=== PATIENT | female | born 1985 | race Asian ===

== ENCOUNTER 2016-12-31 20:50 | Emergency (ER) | payer MEDICAID, OTHER ==
[2016-12-31 21:12] VITALS: BP 120/80
--- NOTE | 2016-12-31 21:19 | ED Physician Documentation ---
PD HPI FEMALE - Stated complaint Stated Complaint: FEMALE - Chief complaint Chief Complaint: UTI - History obtained from History obtained from: Patient - History of Present Illness Timing - onset: Other (1 day of burning dysuria, frequency, and hematuria without flank pain, fevers. She did have a brief episode of nausea yesterday. She does not have frequent) Review of Systems Constitutional: denies: Fever, Chills GI: denies: Abdominal Pain, Vomiting, Diarrhea : reports: Dysuria, Frequency, Hesitancy, Hematuria PD PAST MEDICAL HISTORY - Past Medical History Past Medical History: No - Past Surgical History Past Surgical History: No - Present Medications Home Medications: Ambulatory Orders Medication Instructions Recorded Confirmed Nitrofurantoin Monohyd/M-Cryst 1 tab PO BID 5 Days capsule 12/31/16 [Macrobid 100 mg Capsule] Phenazopyridine HCl [Pyridium] 200 mg PO TID #6 tablet 12/31/16 - Allergies Allergies/Adverse Reactions: Allergies Allergy/AdvReac Type Severity Reaction Status Date / Time latex Allergy Rash Verified 12/31/16 21:04 - Social History Does the pt smoke?: No Smoking Status: Never smoker Does the pt drink ETOH?: No Does the pt have substance abuse?: No - Immunizations Immunizations are current?: No Immunizations: TDAP >10years/unknown PD ED PE NORMAL - Vitals Vital signs reviewed: Yes - General General: Alert and oriented X 3, No acute distress - Abdomen Abdomen: Normal bowel sounds, Soft, Non tender - Back Back: No CVA TTP, No spinal TTP - Neuro Neuro: Alert and oriented X 3, No motor deficit, Normal speech - Psych Psych: Normal mood, Normal affect Results - Vitals Vitals: Vital Signs - 24 hr 12/31/16 21:02 Temperature 36 C L Heart Rate 88 Respiratory 18 Rate Blood Pressure 120/80 O2 Saturation 100 Oxygen O2 Source Room air - Labs Labs: Laboratory Tests 12/31/16 21:05 Urine Color BROWN Urine Clarity BLOODY Urine pH 6.0 Ur Specific [place] 1.025 Urine Protein 100 H Urine Glucose (UA) NEGATIVE Urine Ketones NEGATIVE Urine Occult Blood LARGE H Urine Nitrite NEGATIVE Urine Bilirubin NEGATIVE Urine Urobilinogen 0.2 (NORMAL) Ur Leukocyte Esterase TRACE H Urine RBC 11-25 H Urine WBC 11-25 H Ur Squamous Epith Cells NONE SEEN Urine Bacteria None Seen Ur Microscopic Review INDICATED Urine Culture Comments INDICATED Departure - Departure Disposition: Home, Self Care Clinical Impression: Cystitis Condition: Good Record reviewed to determine appropriate education?: Yes Instructions: ED UTI Cystitis Female Prescriptions: Nitrofurantoin Monohyd/M-Cryst [Macrobid 100 mg Capsule] 1 tab PO BID 5 Days capsule Phenazopyridine HCl [Pyridium] 200 mg PO TID #6 tablet Comments: We will culture your urine, the results should be done in 48-72 hours. If an antibiotic change is necessary we will call you. Return if worse in the meantime, especially if you develop increasing flank pain, fevers, or cannot keep down the medication. Discharge Date/Time: 12/31/16 21:39
[2016-12-31 21:22] LABS: BILIRUBIN,URINE NEGATIVE (NEGATIVE)
[2016-12-31 21:24] LABS: UA w/ MICROSCOPIC CHARGE YES
[2016-12-31 21:25] LABS: UR CULTURE IF IND INDICATED
[2016-12-31] MEDS ORDERED: NITROFURANTOIN MACRO 100 MG CAPSULE PO STA (21:28)
[2016-12-31] MEDS ORDERED: PHENAZOPYRIDINE 100 MG TABLET PO STA (21:29)
[2016-12-31] MEDS ORDERED: NITROFURANTOIN MACRO 100 MG CAPSULE PO ONE (21:38)
[2016-12-31] MEDS ORDERED: PHENAZOPYRIDINE 100 MG TABLET PO ONE ×2 (21:38→21:41)
== END 2016-12-31 21:39 | disposition home or self-care (01) ==
LOC: ED 20:50
DX: N30.90 Cystitis, unspecified without hematuria (principal)
CPT/HCPCS: 81001; 87086; 87181; 99283; A9270; 81003

== ENCOUNTER 2017-01-17 12:20 | Emergency (ER) | payer MEDICAID ==
[2017-01-17 12:25] VITALS: BP 118/77
[2017-01-17 12:41] LABS: BILIRUBIN,URINE NEGATIVE (NEGATIVE)
[2017-01-17 12:43] LABS: HCG UR QUAL NEGATIVE; UA w/ MICROSCOPIC CHARGE YES
[2017-01-17 13:06] LABS: UR CULTURE IF IND INDICATED; WBC,URINE >25 /HPF (0-5)
--- NOTE | 2017-01-17 13:17 | ED Physician Documentation ---
History of Present Illness - Stated complaint Stated Complaint: FEMALE - Chief complaint Chief Complaint: General - Additonal information Additional information: hx from pt dysuria and freq no fever no flank pain no abd pain no NVD no vag bleed or dc denies preg Review of Systems Constitutional: denies: Fever GI: denies: Abdominal Pain, Vomiting : reports: Dysuria, Frequency. 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 - Present Medications Home Medications: Ambulatory Orders Medication Instructions Recorded Confirmed Cephalexin [Keflex] 500 mg PO Q6H #28 capsule 01/17/17 - Allergies Allergies/Adverse Reactions: Allergies Allergy/AdvReac Type Severity Reaction Status Date / Time latex Allergy Rash Verified 01/17/17 12:25 - Social History Does the pt smoke?: No Smoking Status: Never smoker Does the pt drink ETOH?: No Does the pt have substance abuse?: No - Immunizations Immunizations are current?: No Immunizations: TDAP >10years/unknown - POLST Patient has POLST: No PD ED PE NORMAL - Vitals Vital signs reviewed: Yes - General General: Alert and oriented X 3 - HEENT HEENT: PERRL - Neck Neck: Supple, no meningeal sign - Cardiac Cardiac: RRR - Respiratory Respiratory: No respiratory distress, Clear bilaterally - Abdomen Abdomen: Soft, Non tender - Back Back: No CVA TTP - Neuro Neuro: Alert and oriented X 3 Results - Vitals Vitals: Vital Signs - 24 hr 01/17/17 12:23 Temperature 36.8 C Heart Rate 86 Respiratory 18 Rate Blood Pressure 118/77 O2 Saturation 98 Oxygen O2 Source Room air - Labs Labs: Laboratory Tests 01/17/17 12:30 Urine Color YELLOW Urine Clarity CLOUDY Urine pH 6.0 Ur Specific [place] >=1.030 H Urine Protein 100 H Urine Glucose (UA) NEGATIVE Urine Ketones NEGATIVE Urine Occult Blood LARGE H Urine Nitrite NEGATIVE Urine Bilirubin NEGATIVE Urine Urobilinogen 0.2 (NORMAL) Ur Leukocyte Esterase LARGE H Urine RBC 0-5 Urine WBC >25 H Urine WBC Clumps PRESENT Ur Squamous Epith Cells RARE Squamous Urine Bacteria Few Ur Microscopic Review INDICATED Urine Culture Comments INDICATED Urine HCG, Qual NEGATIVE Departure - Departure Disposition: 01 Home, Self Care Clinical Impression: Cystitis Condition: Good Instructions: ED UTI Cystitis Female Prescriptions: Cephalexin [Keflex] 500 mg PO Q6H #28 capsule Comments: If the symptoms have resolved you can just take 5 days of antibiotics since this is only a bladder and not a kidney infection Please follow up with your PMD after completing the antibiotics to have a repeat urine test to make sure the infection is gone We will run a urine culture and we will call you if there is a need to change antibiotics
== END 2017-01-17 13:25 | disposition home or self-care (01) ==
LOC: ED 12:20
DX: N30.00 Acute cystitis without hematuria (principal)
CPT/HCPCS: 81001; 81003; 81025; 87086; 99283

== ENCOUNTER 2019-04-06 16:51 | Emergency (ER) | payer MEDICAID ==
[2019-04-06 17:04] VITALS: BP 111/72
--- NOTE | 2019-04-06 17:27 | ED Physician Documentation ---
PD HPI FEMALE - Stated complaint Stated Complaint: FEMALE - Chief complaint Chief Complaint: UTI - History obtained from History obtained from: Patient - History of Present Illness Timing - onset: How many days ago (1-2) Timing - duration: Days (1-2) Timing - details: Abrupt onset, Still present Associated symptoms: Dysuria, Urinary frequency, Hematuria (tinge). No: Fever, Pelvic pain, Vaginal pain, Vaginal discharge Similar symptoms before: Diagnosis (UTIs just couple times in the past.) Recently seen: Not recently seen Review of Systems Constitutional: denies: Fever, Chills GI: denies: Abdominal Pain, Nausea, Vomiting : reports: Dysuria, Frequency. 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 - Present Medications Home Medications: Ambulatory Orders Medication Instructions Recorded Confirmed Cephalexin [Keflex] 500 mg PO Q6H #28 capsule 01/17/17 Phenazopyridine HCl [Pyridium] 100 mg PO TID PRN #15 tablet 04/06/19 Sulfamethox/Trimeth 800/160 1 each PO BID #14 tablet 04/06/19 [Bactrim Ds 800/160] - Allergies Allergies/Adverse Reactions: Allergies Allergy/AdvReac Type Severity Reaction Status Date / Time latex Allergy Rash Verified 04/06/19 16:58 - Social History Does the pt smoke?: No Smoking Status: Never smoker Does the pt drink ETOH?: No Does the pt have substance abuse?: No - Immunizations Immunizations are current?: No Immunizations: TDAP >10years/unknown - POLST Patient has POLST: No PD ED PE NORMAL - Vitals Vital signs reviewed: Yes - General General: Alert and oriented X 3, No acute distress, Well developed/nourished - Abdomen Abdomen: Soft, Non tender - Back Back: No CVA TTP - Derm Derm: Normal color, Warm and dry - Neuro Neuro: Alert and oriented X 3, No motor deficit, Normal speech Results - Vitals Vitals: Vital Signs - 24 hr 04/06/19 16:58 Temperature 36.7 C Heart Rate 73 Respiratory 14 Rate Blood Pressure 111/72 O2 Saturation 97 Oxygen O2 Source Room air - Labs Labs: Microbiology 04/06/19 17:05 Urine Culture - Preliminary Urine,Clean Catch Escherichia Coli Laboratory Tests 04/06/19 04/06/19 17:00 17:05 Urine Color YELLOW Urine Clarity HAZY Urine pH 5.5 Ur Specific [place] >=1.030 H >=1.030 H Urine Protein 100 H Urine Glucose (UA) NEGATIVE Urine Ketones NEGATIVE Urine Occult Blood LARGE H Urine Nitrite NEGATIVE Urine Bilirubin NEGATIVE Urine Urobilinogen 0.2 (NORMAL) Ur Leukocyte Esterase SMALL H Urine RBC TNTC H Urine WBC 6-10 H Ur Squamous Epith Cells RARE Squamous Urine Bacteria None Seen Ur Microscopic Review INDICATED Urine Culture Comments INDICATED Urine HCG, Qual NEGATIVE PD MEDICAL DECISION MAKING - ED course Complexity details: reviewed results, considered differential, d/w patient Departure - Departure Disposition: Home, Self Care Clinical Impression: Urinary tract infection Qualifiers: Urinary tract infection type: acute cystitis Hematuria presence: with hematuria Qualified Code(s): N30.01 - Acute cystitis with hematuria Condition: Stable Record reviewed to determine appropriate education?: Yes Instructions: ED UTI Cystitis Female Follow-Up: Yessenia Dhillon PA-C [Primary Care Provider] - Prescriptions: Phenazopyridine HCl [Pyridium] 100 mg PO TID PRN #15 tablet PRN Reason: Abdominal Pain Sulfamethox/Trimeth 800/160 [Bactrim Ds 800/160] 1 each PO BID #14 tablet Comments: Stay well-hydrated. Tylenol or ibuprofen if needed for fever or discomfort. Phenazopyridine will help with urinary discomfort. I will turn your urine a little orange so not to worry. Bactrim antibiotic twice daily for 5 days. Recheck if not improving well over the next couple of days and return sooner if worse. Discharge Date/Time: 04/06/19 18:22
[2019-04-06 17:30] LABS: BILIRUBIN,URINE NEGATIVE (NEGATIVE); GLUCOSE, URINE (UA) NEGATIVE (NEGATIVE); KETONES,URINE (UA) NEGATIVE (NEGATIVE); LEUKOCYTE ESTERASE, URINE SMALL (NEGATIVE); NITRITE,URINE NEGATIVE (NEGATIVE); OCCULT BLOOD,URINE LARGE (NEGATIVE); PH,URINE 5.5 PH (5.0-7.5); PROTEIN,URINE 100 mg/dL (NEGATIVE); UROBILINOGEN,URINE 0.2 (NORMAL) E.U./dL (NORMAL)
[2019-04-06 17:34] LABS: CLARITY,URINE HAZY (CLEAR)
[2019-04-06 17:49] LABS: BACTERIA,URINE None Seen /HPF (None Seen); RBC,URINE TNTC /HPF (0-5); SQUAMOUS EPITHELIAL CELL,UR RARE Squamous (<= Few)
[2019-04-06 17:55] LABS: HCG UR QUAL NEGATIVE
[2019-04-06] MEDS ORDERED: SULFAMETH/TRIMETH DS 800/160 MG TABLET PO STA (17:57)
[2019-04-06] MEDS ORDERED: PHENAZOPYRIDINE 100 MG TABLET PO STA (17:57)
== END 2019-04-06 18:22 | disposition home or self-care (01) ==
LOC: ED 16:51
DX: N30.01 Acute cystitis with hematuria (principal)
CPT/HCPCS: 81001; 81025; 87086; 87181; 99283; A9270; 81003

== ENCOUNTER 2021-07-09 19:16 | Emergency (ER) | payer MEDICAID ==
[2021-07-09] MEDS ORDERED: MUPIROCIN 2% OINT 1 GM TOP STA (20:05)
--- NOTE | 2021-07-09 20:09 | ED Physician Documentation ---
PD HPI SKIN - Stated complaint Stated Complaint: RASH ON FACE - Chief complaint Chief Complaint: Wound - History obtained from History obtained from: Patient - Additional information Additional information: Patient is a 35-year-old female with no significant past medical history presenting for evaluation of a rash that has been present for 1 month. Initially the rash started around her mouth and left nasolabial fold area. She had tried Lotrimin cream and Selsun Blue shampoo as she thought it could be ringworm although she does not have a previous history of ringworm. She was also evaluated in the emergency department approximately a week and a half ago and thought to have a dermatitis. She was recommended to try hydrocortisone cream but only used it once as a burned the area. The rash has since spread to other parts of her face. She does note having some drainage And crusting at times from the rash. She denies any oral involvement. She does not use soap on her face but just uses water. She did utilize a moldy beauty brush a month ago and believes that this could have been the source of this rash. She denies any new substances, lotions or chemicals used on the face.She denies a history of eczema or similar rashes. 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 - Present Medications Home Medications: Ambulatory Orders Medication Instructions Recorded Confirmed Mupirocin 2% Oint [Bactroban 2% 1 applic TOP TID 7 Days #22 gm 07/09/21 Oint] - Allergies Allergies/Adverse Reactions: Allergies Allergy/AdvReac Type Severity Reaction Status Date / Time latex Allergy Rash Verified 07/09/21 19:20 - Social History Does the pt smoke?: No Smoking Status: Never smoker Does the pt drink ETOH?: No Does the pt have substance abuse?: No - Immunizations Immunizations are current?: No Immunizations: TDAP >10years/unknown - POLST Patient has POLST: No PD ED PE NORMAL - General General: Alert and oriented X 3, No acute distress, Well developed/nourished - HEENT HEENT: Atraumatic, PERRL, EOMI, Moist mucous membranes, Pharynx benign - Respiratory Respiratory: No respiratory distress - Derm Derm: Other (Dry, peeling raised rash surrounding the perioral area extending to the left cheek and involving the forehead,Slightly erythematous, some shiny areas that appear to have Abraded skin, No vesicles, no oral involvement). No: No rash PD ED PE EXPANDED - Derm SKin visual: 1 - rash 2 - rash 3 - rash 4 - rash 5 - rash Results - Vitals Vitals: Vital Signs - 24 hr 07/09/21 07/09/21 19:20 20:18 Temperature 36.5 C 36.5 C Heart Rate 100 81 Respiratory 16 16 Rate Blood Pressure 147/89 H 138/80 H O2 Saturation 96 97 Oxygen O2 Source Room air PD MEDICAL DECISION MAKING - ED course Complexity details: d/w patient ED course: Patient with nonspecific dermatitis to face for 1 month with no improvement with previous treatments. She is overall very well-appearing and rash does not appear to be toxic. Does not appear to be cellulitic or herpetic.Does not appear annular with raised borders to suggest ringworm.Question whether there is an eczema component to the rash. However Patient has now reported having some drainage and crusting from the rash which makes me concerned for a superficial soft tissue skin infection. We will try mupirocin cream for 1 week. Patient counseled on need for follow-up with a primary care doctor or health assessment and treatment teacher as the rash has been present for 1 month. She is also advised of return precautions For worsening signs of infection or Involvement of mucous membranes Or any concerns. Departure - Departure Disposition: 01 Home, Self Care Clinical Impression: Dermatitis, Secondary infection of skin Condition: Stable Instructions: ED Dermatitis Non Specific Rash Prescriptions: Mupirocin 2% Oint [Bactroban 2% Oint] 1 applic TOP TID 7 Days #22 gm Comments: Ann you were evaluated for a worsening rash to your face. The exact cause of your rash today is unclear. I do think that you may be developing a secondary skin infection due to the areas that have been peeling as well as the drainage that you have described. As such, I have prescribed an antibiotic to be applied to the rash 2-3 times a day for the next 1 week with hopes of improvement. Please also use a moisturizing soap such as CetaphilTo clean your face.Please use medications like BenadrylFor any itching. If you notice worsening of the rash, involvement of surfaces inside of the mouth, increased redness, swelling, abnormal drainage, develop feversThen please return to the emergency department. If the rash does not seem to be improving, you may need to see a health assessment and treatment teacher for a more specialized opinion or skin biopsy.I have sent your prescription to the [facility] in [place]. Discharge Date/Time: 07/09/21 20:18
[2021-07-09 20:19] VITALS: BP 138/80
== END 2021-07-09 20:18 | disposition home or self-care (01) ==
LOC: ED 19:16
DX: L30.3 Infective dermatitis (principal)
CPT/HCPCS: 99282; A9270